=== PATIENT | female | born 1955 | race Caucasian/White ===

== ENCOUNTER 2021-07-02 09:14 | Outpatient (CLI) | payer MEDICARE, OTHER, SELFPAY ==
--- NOTE | 2021-07-02 09:35 | XR_ITS ---
WS: [id number] LEFT KNEE: 2 VIEW(S) TECHNIQUE: AP and lateral. HISTORY: PAIN IN LEFT KNEE, MYALGIA COMPARISON: None available. Mild lateral compartment narrowing. Hypertrophic bone formation is mild at the medial and lateral dariel nt lines. No fracture. No joint effusion. No soft tissue abnormality. XR/XR knee LT 1-2V [id number] IMPRESSION: Mild medial and lateral compartment osteoarthritis, greater narrowing involving the lateral joint space.
== END 2021-07-02 09:15 | disposition home or self-care (01) ==
PROVIDERS: Visit Provider Nurse Practitioner
DX: M79.10 Myalgia, unspecified site (principal); M17.12 Unilateral primary osteoarthritis, left knee
CPT/HCPCS: 73560

== ENCOUNTER 2021-08-06 15:01 | Outpatient (CLI) | payer MEDICARE, OTHER, SELFPAY ==
--- NOTE | 2021-08-06 15:12 | MR_ITS ---
WS: [id number] MRI of the left knee, 08/06/2021 Clinical Data: PAIN IN LEFT KNEE Comparison: Left knee, 07/02/2021 Findings: There is narrowing of the medial and lateral joint compartments with osteophyte formation of the medi al lateral femoral condyle and medial and lateral tibial plateau. The anterior and posterior cruciate ligaments are intact without tear. The medial meniscus shows no t ears. There is a small horizontal tear of the lateral meniscus There is loss of the lateral articular cartilage. There is a small bone bruise of the posterior lateral femoral condyle. There is a minimal amount of fluid in the joint. There are no osteochondral fractures. The medial and lateral collateral ligaments are intact without strain or tear. The quadriceps tendon and patellar tendon show no abnormalities. The patella is intact without displacement or chondromalac ia. No Holman's cyst is seen. MR/MR knee LT wo con* [id number] Impression: 1. Negative for ligamentous tear. 2. Small meniscal tear of the lateral meniscus with adjacent bone bruise of the posterior lateral femoral condyle. 3. Narrowing of the medial and lateral joint compartments with loss of lateral articular cartilage. 4. Small amount of fluid in the joint space. Outbridge grading: grade II: blister-like swelling/fraying of articular cartila ge extending to surface
== END 2021-08-06 15:02 | disposition home or self-care (01) ==
PROVIDERS: Visit Provider Nurse Practitioner
DX: S83.282A Other tear of lateral meniscus, current injury, left knee, initial encounter (principal); X58.XXXA Exposure to other specified factors, initial encounter
CPT/HCPCS: 73721

== ENCOUNTER → 2021-11-10 13:00 | Outpatient (BNVA) | payer MEDICARE, OTHER, SELFPAY | PROVIDERS: Referring Provider Nurse Practitioner; Visit Provider Specialist | DX: M25.562 Pain in left knee (principal) | CPT/HCPCS: 73560; 73565 ==

== ENCOUNTER → 2021-12-07 13:07 | Outpatient (BNVA) | payer MEDICARE, OTHER, SELFPAY | PROVIDERS: Visit Provider Orthopaedic Surgery | DX: M54.50 Low back pain, unspecified (principal); M47.816 Spondylosis without myelopathy or radiculopathy, lumbar region | CPT/HCPCS: 72110 ==

== ENCOUNTER 2021-12-24 15:35 | Outpatient (CLI) | payer MEDICARE, OTHER, SELFPAY ==
--- NOTE | 2021-12-24 15:15 | MR_ITS ---
WS: [id number] MRI LEFT KNEE HISTORY: Chronic knee pain. COMPARISON: 08/06/2021. Anterior cruciate ligament: Intact. Posterior cruciate ligament: Intact. Medial collateral ligament: Intact. Posterior lateral corner structures: Intact. Medial menisci: Simple linear area of increased signal in the posterior horn does extend to the infer ior articular surface. There is additional mild fraying along the surface of the posterior horn. Lateral meniscus: There is blunting of the free edge of the lateral meniscus with a focal tear and fo reshortening of the meniscus. Similar to the prior study. Extensor mechanism: Distal quadriceps tendon and patellar tendons are intact. Fluid and soft tissue: No joint effusion. No Holman's cyst. There is a lobulated cystic mass posterior to the lateral femoral condyle measuring 1.0 x 2.0 cm. This abuts the posterior lateral femoral cond yle in an area of marrow edema. This may be a ganglion or small meniscal cyst. Not closely associated with the meniscus. Osseous and articular structures: Patellofemoral compartment: Normal. Medial compartment: Mild narrowing of the medial compartment. Joint space narrowing with osteophytes and surface thinning and fissuring of the cartilage. More focal signal abnormality along the weightbe aring surface of the femoral condyle. No fracture or marrow edema. Lateral compartment: Moderate narrowing of the lateral compartment. Significant loss of cartilage shorty ng the lateral tibial plateau and to a lesser extent the femoral condyle. There is a more focal defec t involving the femoral condyle towards the intercondylar notch. This is a complete defect within the cartilage. There is abnormal marrow signal in the posterior lateral femoral condyle with adjacent lo ss of cartilage along the posterior condyle. MR/MR knee LT wo con* [id number] IMPRESSION: 1. Horizontal tear posterior horn medial meniscus extends to the inferior pop cular surface. 2. Additional tear posterior horn lateral meniscus with abnormal blunting of t he free edge and a small meniscus. 3. Significant loss of cartilage in the lateral compartment with joint space n arrowing. 4. Additional cartilaginous defect and marrow edema in the posterior femoral c ondyle with adjacent lobulated cystic mass which may be a ganglion. 5. Mild chondromalacia the medial compartment.
== END 2021-12-24 15:36 | disposition home or self-care (01) ==
LOC: RAD 15:39
PROVIDERS: Visit Provider Specialist
DX: G89.29 Other chronic pain (principal); M94.269 Chondromalacia, unspecified knee; S83.242A Other tear of medial meniscus, current injury, left knee, initial encounter; X58.XXXA Exposure to other specified factors, initial encounter; S83.282A Other tear of lateral meniscus, current injury, left knee, initial encounter; M25.862 Other specified joint disorders, left knee
CPT/HCPCS: 73721

== ENCOUNTER 2022-01-20 10:09 | Outpatient (CLI) | payer MEDICARE, OTHER, SELFPAY ==
--- NOTE | 2022-01-20 11:00 | MR_ITS ---
WS: [id number] MRI LUMBAR SPINE NONCONTRAST TECHNIQUE: Sagittal T1, T2 and STIR imaging. Axial T1 and T2 imaging. CLINICAL INFORMATION: M54.50 - Low back pain, unspecified COMPARISON: None. FINDINGS: Mild lumbar curve. No acute compression. Slight anterolisthesis L4 on L5. Degenerative endplate-type changes with edema involving the L1-L2 vertebral bodies with T2 signal abnormality in the disc space. This is likely degenerative. Discitis is not entirely excluded. Recommend correlation with infectiou s symptoms and interval follow-up. Small disc protrusions T10-T11 and T11-T12. Mild central canal gunnar nosis at T10-T11. L1-L2: Mild disc bulging with slight effacement of ventral thecal sac. Mild LEFT and no significant R IGHT foraminal narrowing. Mild facet arthropathy. Degenerative endplate-type changes with edema. Disc itis not entirely excluded. Recommend correlation for infection and interval follow-up. L2-L3: Mild annular bulging. LEFT eccentric disc bulge with mild LEFT foraminal narrowing. Spinal can al and foramen are patent. Mild facet arthropathy. L3-L4: Mild annular bulging. Spinal canal and foramen are patent. Mild facet arthropathy. L4-L5: Slight anterolisthesis. Mild disc bulging with slight effacement of ventral thecal sac. Tiny a nnular fissure. Moderate facet arthropathy. Foramen are patent. Slight impingement LEFT subarticular recess and traversing LEFT L5 nerve root. L5-S1: LEFT eccentric disc osteophytic ridging. Slight impingement traversing LEFT S1 nerve root. Mil d LEFT foraminal narrowing with slight contact of the exiting LEFT L5 nerve root. RIGHT foramen is pa tent. Moderate facet arthropathy. Adrenal glands are normal. Slightly aneurysmal infrarenal abdominal aorta measuring 2.7 x 2.7 cm. Visualized pelvic bony structures: Normal. Paravertebral soft tissues: Normal. MR/MR lumbar spine wo con* [id number] IMPRESSION: 1. Mild lumbar curve. No acute compression. No high-grade central canal stenos is. Slight anterolisthesis L4 on L5. 2. Degenerative endplate-type change L1-L2 with edema. T2 signal abnormality i n the disc space. This is likely degenerative however discitis not entirely exc luded. Recommend clinical correlation for infection and interval follow-up MRI especially if persistent symptoms 3. Annular bulging L4-L5 with slight impingement on the LEFT subarticular rece ss and traversing LEFT L5 nerve root. Small annular fissure at this level. 4. LEFT eccentric disc osteophytic ridging L5-S1 impinges the LEFT S1 nerve ro ot in the subarticular recess. Contact of the exiting LEFT L5 nerve root with m ild LEFT foraminal narrowing. 5. Disc bulging L1-L2 with narrowing of the subarticular recess bilaterally. M ild LEFT foraminal narrowing with a small LEFT foraminal protrusion. 6. Mild LEFT L2-L3 foraminal narrowing. 7. Moderate facet arthropathy L3-L4 L4-L5. 8. Tiny disc protrusions in the lower thoracic spine at T10-T11 and T11-T12. M ild central canal stenosis at T10-T11.
== END 2022-01-20 10:10 | disposition home or self-care (01) ==
LOC: RAD 10:11
PROVIDERS: Visit Provider Orthopaedic Surgery
DX: M43.16 Spondylolisthesis, lumbar region (principal); M51.26 Other intervertebral disc displacement, lumbar region; M51.36 Other intervertebral disc degeneration, lumbar region; M48.061 Spinal stenosis, lumbar region without neurogenic claudication
CPT/HCPCS: 72148

== ENCOUNTER → 2022-02-10 15:06 | Outpatient (BNVA) | payer MEDICARE, OTHER, SELFPAY | PROVIDERS: PCP Family Medicine; Visit Provider Orthopaedic Surgery | DX: M48.062 Spinal stenosis, lumbar region with neurogenic claudication (principal) | CPT/HCPCS: 99214 ==

== ENCOUNTER → 2022-02-17 09:17 | Outpatient (BNVA) | payer MEDICARE, OTHER, SELFPAY | PROVIDERS: PCP Family Medicine; Visit Provider Anesthesiology Pain Medicine | DX: M48.062 Spinal stenosis, lumbar region with neurogenic claudication (principal); M47.816 Spondylosis without myelopathy or radiculopathy, lumbar region; M17.0 Bilateral primary osteoarthritis of knee; F17.210 Nicotine dependence, cigarettes, uncomplicated | CPT/HCPCS: 99204 ==

== ENCOUNTER → 2022-03-07 12:54 | Outpatient (BNVA) | payer MEDICARE, OTHER, SELFPAY | PROVIDERS: PCP Family Medicine; Visit Provider Anesthesiology Pain Medicine | DX: M54.16 Radiculopathy, lumbar region (principal); M48.062 Spinal stenosis, lumbar region with neurogenic claudication; F17.210 Nicotine dependence, cigarettes, uncomplicated | CPT/HCPCS: 64483; 64484; J1100; J3490 ==

== ENCOUNTER → 2022-03-14 11:06 | Outpatient (BNVA) | payer MEDICARE, OTHER, SELFPAY | PROVIDERS: PCP Family Medicine; Visit Provider Specialist | DX: M17.12 Unilateral primary osteoarthritis, left knee (principal); S83.282A Other tear of lateral meniscus, current injury, left knee, initial encounter; X58.XXXA Exposure to other specified factors, initial encounter | CPT/HCPCS: 20610; 99213; J1100; J2795; J3301 ==

== ENCOUNTER → 2022-03-22 12:50 | Outpatient (BNVA) | payer MEDICARE, OTHER, SELFPAY | PROVIDERS: PCP Family Medicine; Visit Provider Anesthesiology Pain Medicine | DX: M54.16 Radiculopathy, lumbar region (principal); M48.062 Spinal stenosis, lumbar region with neurogenic claudication; F17.210 Nicotine dependence, cigarettes, uncomplicated | CPT/HCPCS: 64483; 64484; J1100; J1200; J3490 ==

== ENCOUNTER → 2022-04-20 09:54 | Outpatient (BNVA) | payer MEDICARE, OTHER, SELFPAY | PROVIDERS: PCP Family Medicine; Visit Provider Anesthesiology Pain Medicine | DX: M79.604 Pain in right leg (principal); M79.605 Pain in left leg; F17.210 Nicotine dependence, cigarettes, uncomplicated; M48.062 Spinal stenosis, lumbar region with neurogenic claudication; M47.816 Spondylosis without myelopathy or radiculopathy, lumbar region; M17.0 Bilateral primary osteoarthritis of knee | CPT/HCPCS: 99213 ==

== ENCOUNTER → 2022-06-21 07:59 | Outpatient (BNVA) | payer MEDICARE, OTHER, SELFPAY | PROVIDERS: PCP Family Medicine; Visit Provider Orthopaedic Surgery | DX: M48.062 Spinal stenosis, lumbar region with neurogenic claudication (principal) | CPT/HCPCS: 99214 ==

== ENCOUNTER 2022-07-15 07:00 | Day surgery (SDC) | payer MEDICARE, OTHER, SELFPAY ==
[2022-07-13 09:22] VITALS: BMI 26.6
--- NOTE | 2022-07-13 11:05 | ANES.PREANE2 ---
Pre-Anesthetic Assessment Height/Weight: Height 1.63 m Weight 70.307 kg Operation Date: 07/15/22 08:30 Proposed Procedures p Lumbar Spine Decompression L3/4 L4/5 [id number](Not Applicable) - Jason Walton DO Familial anesthetic complications: hard time waking up Social Tobacco and No alcohol Exam alert, oriented x 3, clear to auscultation bilaterally and regular rate & rhythm Airway Mallampati: Class II Dentition: false Pulmonary None reported CV/HEM Hypertension None reported Hepatic None reported GI Hiatal Hernia (?) Musc/skel Fibromyalgia and Lower Back Pain Neuropsych Cerebrovascular Accident (15 years ago) Anesthetic Plan ASA status: 2 Anesthesia: General Risk of > 500 ml blood loss (7ml/kg in children): No Medications/Allergies Home Medications Medication Instructions Recorded Confirmed Last Taken Type duloxetine 60 mg capsule,delayed 60 mg PO DAILY 02/10/22 07/13/22 Unknown History release gabapentin 300 mg capsule 300 mg PO BID 02/10/22 07/13/22 Unknown History metoprolol succinate 50 mg 50 mg PO DAILY 02/10/22 07/13/22 Unknown History tablet,extended release 24 hr potassium chloride 10 mEq 10 meq PO DAILY 02/10/22 07/13/22 Unknown History capsule,extended release vitamin k supplement PO 02/10/22 06/21/22 Unknown History aspirin 81 mg tablet,delayed 81 mg PO DAILY 02/17/22 07/13/22 Unknown History release (Adult Low Dose Aspirin) ibuprofen 800 mg tablet 800 mg PO Q8H 02/17/22 07/13/22 Unknown History lorazepam 0.5 mg tablet (Ativan) 0.5 mg PO TID PRN Anxiety 02/17/22 07/13/22 Unknown History Allergies Allergy/AdvReac Type Severity Reaction Status Date / Time Gadolinium-Containing Allergy swelling Verified 07/13/22 10:44 Contrast Medi tongue oxybutynin Allergy Unknown Verified 07/13/22 10:44 Penicillins Allergy hives Verified 07/13/22 10:44 BEE STINGS Allergy Severe ALGY-Swell Uncoded 07/13/22 10:44 Lip/Tongue/Throat VANILLA Allergy Severe PASS OUT Uncoded 07/13/22 10:44 PFS Anesthesia Family History Other Cancer Social History (Reviewed 06/21/22 @ 08:04 by Bharti Sanabria Smoking and tobacco status: current every day smoker cigarettes Packs smoked per day: 1 Smoking risk assessment/counseling performed?: No Alcohol intake: never Adopted: No Caregiver/support person: Yes Lives independently: No Household members: spouse Housing: House Marital status: Number of children: 3 Number of grandchildren: 30 Highest education level completed: GED or Equivalent service: No Current occupational status: retired Current occupation: customer service, factory Current occupational exposures/hazards: No Pets and animals: Yes History of recent travel: No Current gender identity: Female Special ty needs: No Agree to transfusion: Yes Data Anesthesia Cardiac Studies: No Data to Display
[2022-07-15] VITALS (9 sets, daily range): BP systolic 92–132; BP diastolic 61–89; PULSE 56–76; RESP 16–18; TEMP 36.1–36.5; O2SAT 92–99
--- NOTE | 2022-07-15 | SCC_ITS ---
Procedure done: 1. L3/4 laminectomy with partial facetectomies 2. L4/5 laminectomies with partial facetectomies 24 seconds of fluoroscopic guidance, for a cumulative dose of 6.7 mGy, was provided to Dr. Walton by the radiology department. C-arm images of the lumbar spine were saved for the patient's permanent record. [facility] [place] [facility]
--- NOTE | 2022-07-15 | XR_ITS ---
WS: [id number] Lumbar spine, C-arm fluoroscopy, 07/15/2022 Clinical Data: L3-4, L4-5 decompression. Comparison: None. Findings: Dr. Walton performed a lumbar decompression at L3-L4 and L4-L5 XR/XR lumbar spine 1V [id number] Impression: Lumbar decompression.
[2022-07-15] MEDS: sodium chloride 0.9% 1,000 ML 30 ML IV (07:22)
--- NOTE | 2022-07-15 08:07 | P.ANESUD_ITS ---
Pre-Anesthetic Update Pre-Anesthetic Assessment: Date of Surgery/Procedure: 07/15/22 Preop Chacha gnosis: Lumbar stenosis w/Neurogenic Claudication Proposed Procedure: Operation Date: 07/15/22 08:30 Proposed Procedures p Lumbar Spine Decompression L3/4 L4/5 [id number](Not Applicable) - Jason Walton, DO Any changes to Pre-Anesthetic Assessment?: No Last Intake: Intake Last Liquid Date 07/14/22 Last Liquid Time 19:00 Last Solid Date 07/14/22 Last Solid Time 19:00 Vitals: Temperature 97.0 F L 07/15/22 07:06 Temperature Source Temporal Artery S can 07/15/22 07:06 Pulse Rate 68 07/15/22 07:06 Respiratory Rate 18 07/15/22 07:06 Blood Pressure 132/89 07/15/22 07:06 Blood Pressure Tessy n 103 07/15/22 07:06 Pulse Oximetry 97 07/15/22 07:06 Oxygen Delivery Me thod 07/15/22 07:09 Exam: Pre-Anes Outpt Exam: alert, oriented x 3, clear to auscultation bilaterally and regular rate & rhythm Cardiac Studies: No Data to Display
--- NOTE | 2022-07-15 08:13 | W.PM.OPSUD ---
Surgery/Procedure H&P Update DATE OF PROCEDURE: July 15, 2022 DATE H&P PERFORMED: 06/21/22 H&P UPDATE INFORMATION: I have reviewed H&P completed within last 30 days, I have examined patient prior to procedure and No changes to prior documentation PREOP DIAGNOSIS: Lumbar stenosis w/Neurogenic Claudication PLANNED PROCEDURE: Operation Date: 07/15/22 08:30 Proposed Procedures p Lumbar Spine Decompression L3/4 L4/5 [id number](Not Applicable) - Jason Walton DO
[2022-07-15] MEDS: clindamycin 900 MG/50 ML PREMIX 100 MG IV (08:29)
--- NOTE | 2022-07-15 08:57 | SUR.OPER ---
Family Notified Of Patient's Status Via Phone.
--- NOTE | 2022-07-15 09:51 | PM.OP ---
Operative Report Date of procedure: July 15, 2022 Pre-op diagnosis: Preop Diagnosis Lumbar stenosis w/Neurogenic Claudication Post-op diagnosis: same Procedure done: 1. L3/4 laminectomy with partial facetectomies 2. L4/5 laminectomies with partial facetectomies Surgeon: Jason Walton Estimated blood loss (mL): 5 Procedure: 1. L3/4 laminectomy with partial facetectomies 2. L4/5 laminectomies with partial facetectomies Patient is brought to the operative suite. After undergoing anesthesia they are placed in the prone position. All areas of impingement are well padded. Patient is then prepped and draped in the normal sterile fashion. A skin incision is made over the L3/4 level. This is confirmed under c-arm guidance. A series of dilators are passed and the tubular retractor is docked on the L3 lamina. A bovie is used to clear the soft tissue off the lamina and the L 3/4 facet joint. A high speed adeel is then used to perform the laminectomy and take down the medial aspect of the L 3/4 facet joint. A kerrison rongeure was then used to take down the remaining lamina and smooth the edged of the laminectomy up to the point where the ligamentum flavum attaches. Attention was then brought to the medial aspect of the facet joint. The remaining medial aspect of the superior and inferior aspect of the facet joint were taken down with the kerrison from the pedicle of L3 to L 4. The facet joint had significant hypertrophy. Attention was then brought to the Ligamentum Flavum. The ligament was taken down from the lamina of L3 to L4 and out medially to the remaining facet joint. The ligament was thick. The dura was then exposed. The dura was in good repair. The L3 nerve was then traced with a curette out the L3/4 foramen and found to be adequately decompressed. The L4 nerve was traced with a curette around the L4 pedicle. The lateral recess was opened with a kerrison helping to further decompress the L4 nerve. The tubular retractor was then tilted to the contralateral side. The bovie was used to take down the soft tissue on the spinous process. The high speed adeel was used to take down the spinous process and then the contralateral lamina of L3. The kerrison rongeur was used to take down the remaining lamina to the point where the ligamentum flavum attached and the ligamentum flavum was taken down from L3 to L4. The kerrison rongeur was then used to reach across and take down the medial aspect of the contralateral L3/4 facet joint.The currete was used to trace the contralateral L3 nerve out the L3/4 foramen to make sure it was decompressed adequatesly and the L4 was traced around the L4 pedicle. The lateral recess was opened further with the kerrison to ensure the L4 is adequately decompressed. Wound is then irrigated copiously with saline and surgiflo is used to stop any bleeding. The tubular retractor is removed and A skin incision is made over the L4/5 level. This is confirmed under c-arm guidance. A series of dilators are passed and the tubular retractor is docked on the L4 lamina. A bovie is used to clear the soft tissue off the lamina and the L 4/5 facet joint. A high speed adeel is then used to perform the laminectomy and take down the medial aspect of the L 4/5 facet joint. A kerrison rongeure was then used to take down the remaining lamina and smooth the edged of the laminectomy up to the point where the ligamentum flavum attaches. Attention was then brought to the medial aspect of the facet joint. The remaining medial aspect of the superior and inferior aspect of the facet joint were taken down with the kerrison from the pedicle of L4 to L 5. The facet joint had significant hypertrophy. Attention was then brought to the Ligamentum Flavum. The ligament was taken down from the lamina of L4 to L5 and out medially to the remaining facet joint. The ligament was thick. The dura was then exposed. The dura was in good repair. The L4 nerve was then traced with a curette out the L4/5 foramen and found to be adequately decompressed. The L5 nerve was traced with a curette around the L5 pedicle. The lateral recess was opened with a kerrison helping to further decompress the L5 nerve. The tubular retractor was then tilted to the contralateral side. The bovie was used to take down the soft tissue on the spinous process. The high speed adeel was used to take down the spinous process and then the contralateral lamina of L4. The kerrison rongeur was used to take down the remaining lamina to the point where the ligamentum flavum attached and the ligamentum flavum was taken down from L4 to L5. The kerrison rongeur was then used to reach across and take down the medial aspect of the contralateral L4/5 facet joint.The currete was used to trace the contralateral L4 nerve out the L4/5 foramen to make sure it was decompressed adequatesly and the L5 was traced around the L5 pedicle. The lateral recess was opened further with the kerrison to ensure the L5 is adequately decompressed. Wound is then irrigated copiously with saline and surgiflo is used to stop any bleeding. The tubular retractor is removed and the wound is closed with vicryl and monocryl suture. Glue is then used to protect the wound. A sterile dressing is then placed. Patient was then placed in the supine position and transferred to the PACU in stable condition.
--- NOTE | 2022-07-15 11:10 | SUR.PHASEII ---
11:00 dressing dry and intact. ROM and sensation in all 4 extremities.
--- NOTE | 2022-07-15 13:26 | ANE.PACU2 ---
Inpatient post-anesthesia follow up: Airway intact: Yes Vital signs: Temperature 97.7 F Pulse Rate 56 Respiratory Rate 16 Blood Pressure 104/72 Pulse Oximetry 96 Oxygen Delivery Me thod Room Air Oxygen Flow Rate 6 Fraction of Inspir ed Oxygen Hydration adequate: Yes Nausea and vomiting: No Pain level: 3 Mental status: Baseline
== END 2022-07-15 11:10 | disposition home or self-care (01) ==
PROVIDERS: PCP Family Medicine; Visit Provider Orthopaedic Surgery
PROC: (CPT 63005; principal; 2022-07-15 08:20)
DX: M48.062 Spinal stenosis, lumbar region with neurogenic claudication (principal); I10 Essential (primary) hypertension; M79.7 Fibromyalgia; Z86.73 Personal history of transient ischemic attack (TIA), and cerebral infarction without residual deficits; Z79.82 Long term (current) use of aspirin; F17.210 Nicotine dependence, cigarettes, uncomplicated
CPT/HCPCS: 63047; 63048; 72020; 76000; J1100; J2250; J2405; J2704; J3010; J3490; J7030

== ENCOUNTER → 2022-08-02 08:04 | Outpatient (BNVA) | payer MEDICARE, OTHER, SELFPAY | PROVIDERS: PCP Family Medicine; Visit Provider Orthopaedic Surgery | DX: Z47.89 Encounter for other orthopedic aftercare (principal) | CPT/HCPCS: 99024 ==

== ENCOUNTER → 2022-09-01 07:56 | Outpatient (BNVA) | payer MEDICARE, OTHER, SELFPAY | PROVIDERS: PCP Family Medicine; Visit Provider Physician Assistant | DX: Z98.890 Other specified postprocedural states (principal) | CPT/HCPCS: 99024 ==

== ENCOUNTER → 2023-02-09 11:15 | Outpatient (BNVA) | payer MEDICARE, OTHER, SELFPAY | PROVIDERS: PCP Family Medicine; Visit Provider Internal Medicine Rheumatology | DX: M19.90 Unspecified osteoarthritis, unspecified site (principal); Z79.899 Other long term (current) drug therapy; Z11.59 Encounter for screening for other viral diseases; M45.6 Ankylosing spondylitis lumbar region; M16.11 Unilateral primary osteoarthritis, right hip; M19.071 Primary osteoarthritis, right ankle and foot | CPT/HCPCS: 72100; 72170; 73130; 73630; 80076; 82306; 82565; 85025; 85651; 86038; 86200; 86431; 86704; 86803; 86812; 87340 ==

== ENCOUNTER → 2023-04-13 12:44 | Outpatient (BNVA) | payer MEDICARE, OTHER, SELFPAY | PROVIDERS: PCP Family Medicine; Visit Provider Internal Medicine Rheumatology | DX: M19.90 Unspecified osteoarthritis, unspecified site (principal); Z79.899 Other long term (current) drug therapy; M76.61 Achilles tendinitis, right leg; M76.62 Achilles tendinitis, left leg; Z84.0 Family history of diseases of the skin and subcutaneous tissue; Z98.890 Other specified postprocedural states | CPT/HCPCS: 80076; 82565; 85025; 86140 ==

== ENCOUNTER → 2024-06-13 09:08 | Outpatient (BNVA) | payer MEDICARE, SELFPAY | PROVIDERS: PCP Family Medicine; Referring Provider Nurse Practitioner Family; Visit Provider Student in an Organized Health Care Education/Training Program | DX: R03.0 Elevated blood-pressure reading, without diagnosis of hypertension (principal) | CPT/HCPCS: 99204 ==

== ENCOUNTER 2025-04-08 14:49 | Outpatient (CLI) | payer MEDICARE, SELFPAY ==
--- NOTE | 2025-04-08 14:58 | CT_ITS ---
WS: [id number] CT ABDOMEN PELVIS TECHNIQUE: Contrast-enhanced CT of the abdomen and pelvis with coronal and sagittal reformatted images. CLINICAL INFORMATION: DIARRHEA, ABDOMINAL PAIN GENERALIZED COMPARISON: None. DLP: 365.[address] scans at [facility] use at least one of these dose optimization techniques: automated exposure control; mA and/or kV adjustment per patient size (includes targeted exams where dose is matched to clinical indication); or iterative reconstruction. FINDINGS: Fusiform enlarging abdominal aortic aneurysm with a large amount of peripheral mural thrombus. Aneurysm measures approximately 4.1 x 4.0 x 9.7 cm AP by transverse by craniocaudal. Recommend vascular surgery consultation. Aneurysm appears increased in size since the lumbar spine 2021 where it measured 2.7 x 2.7 AP by transverse. Heterogeneous attenuation within the mural thrombus suggest ongoing enlargement Images of the pelvis degraded due to beam hardening artifact from RIGHT JUAN M. Prior hysterectomy. Fatty liver. Noncalcified nodule RIGHT lower lobe measuring 4.4 mm. Celiac and SMA are patent. Portal vein and splenic vein are patent. Normal pancreatic parenchymal enhancement. Small splenule. Small esophageal hiatal hernia. Tiny fat-containing umbilical hernia. Adrenal glands are normal. Normal renal parenchymal enhancement. Tiny RIGHT renal cyst. Normal sigmoid colon. Transverse colon hepatic flexure and LEFT descending colon are decompressed with a small amount of submucosal enhancement. Recommend correlation for mild infectious or inflammatory colitis. CT/CT abdomen pelvis w con* [id number] IMPRESSION: 1. Fusiform enlarging abdominal aortic aneurysm with peripheral mural thrombos is. Slightly heterogeneous attenuation in the mural thrombus suggests ongoing e nlargement. This has significantly increased in size since 2021. Recommend [facility] ular surgery consultation. Aneurysm measures 4.1 x 4.0 x 9.7 cm AP by transvers e by craniocaudal 2. Equivocal mild infectious or inflammatory colitis involving the transverse colon and LEFT ascending colon. Normal sigmoid colon. 3. Fatty liver. 4. Prior hysterectomy. 5. Noncalcified nodule RIGHT lower lobe measuring 4.4 mm. Recommend 12-month f ollow-up chest CT.
[2025-04-08] MEDS: iohexol 350 mg/mL 500 mL Btl (per mL) PO (15:57)
[2025-04-08] MEDS: iohexol 350 mg/mL 500 mL Btl (per mL) IV (16:22)
== END 2025-04-08 14:50 | disposition home or self-care (01) ==
LOC: RAD 14:50
PROVIDERS: PCP Family Medicine; Visit Provider Family Medicine
DX: I71.40 Abdominal aortic aneurysm, without rupture, unspecified (principal); I74.09 Other arterial embolism and thrombosis of abdominal aorta; K76.0 Fatty (change of) liver, not elsewhere classified; K52.9 Noninfective gastroenteritis and colitis, unspecified
CPT/HCPCS: 74177